=== PATIENT | male | born 1970 | race Caucasian/White ===

== ENCOUNTER 2019-12-13 06:09 | Emergency (ER) | payer OTHER ==
[~2019-12-13] VITALS: Ht 188 cm; Wt 103.4 kg
[2019-12-13] MEDS ORDERED: SLOW-MAG64 M1 PO (06:20)
[2019-12-13] MEDS ORDERED: POTASSIUM PO (06:21)
[2019-12-13] MEDS ORDERED: CLARITIN10 M3 PO (06:22)
[2019-12-13] MEDS ORDERED: VITAMIN D3-ALO1 EACH PO (06:22)
[2019-12-13 07:09] LABS: ABSOLUTE NEUTROPHILS 5.4 thou/uL (1.4-8.2); BASOPHILS 0.6 % (0.0-2.0); EOSINOPHILS 1.7 % (0.0-3.0); HEMATOCRIT 47.1 % (42.0-52.0); HEMOGLOBIN 16.1 gm/dL (14.0-18.0); MCH 31.2 pg (26.0-34.0); MCHC 34.3 g/dL (28.0-37.0); MONOCYTES 6.8 % (1.0-8.0); PLATELET COUNT 192 thou/uL (150-400); POLYS 75.9 % (36.0-66.0); RBC 5.17 mil/uL (4.50-6.00); RDW 13.8 % (10.5-14.5); WBC 7.1 thou/uL (4.0-11.0)
[2019-12-13 07:41] LABS: ANION GAP 10 mmol/L (7-16); BUN 7 mg/dL (7-18); CALCIUM 9.2 mg/dL (8.5-10.1); CHLORIDE 106 mmol/L (98-107); CO2 27 mmol/L (21-32); GLUCOSE 105 mg/dL (74-106); POTASSIUM 4.4 mmol/L (3.5-5.1); SODIUM 143 mmol/L (136-145)
[2019-12-13 07:42] LABS: AMP/METHAMP Negative (Negative); BARBITURATES Negative (Negative); BENZODIAZEPINES Negative (Negative); COCAINE Negative (Negative); METHADONE Negative (Negative); OPIATES Negative (Negative); PCP Negative (Negative)
[2019-12-13 07:55] LABS: SGOT 16 U/L (15-37); SGPT 21 U/L (30-65); TOTAL BILIRUBIN 0.4 mg/dL (0.2-1.0); TOTAL PROTEIN 7.2 g/dL (6.4-8.2); TROPONIN-I <0.06 ng/mL (<0.06)
--- NOTE | 2019-12-13 07:59 | EKG ---
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
[2019-12-13 08:49] VITALS: BP 122/78
[2019-12-13 09:37] LABS: PLATELET ESTIMATE NORMAL
== END 2019-12-13 08:49 | disposition home or self-care (01) ==
LOC: ER 06:09
PROVIDERS: Emergency Medicine
DX: R00.1 Bradycardia, unspecified (principal); F41.9 Anxiety disorder, unspecified; G89.29 Other chronic pain; M54.5 Low back pain; Z79.899 Other long term (current) drug therapy

== ENCOUNTER → 2019-12-27 | Outpatient (CLI) | payer OTHER ==
[~2019-12-27] MED LIST: CLARITIN10 M3 PO; POTASSIUM PO; SLOW-MAG64 M1 PO; VITAMIN D3-ALO1 EACH PO
== END ==
LOC: SJCVCIMAG 10:40
PROVIDERS: ATTEND Internal Medicine
DX: I08.8 Other rheumatic multiple valve diseases (principal); I10 Essential (primary) hypertension; I45.10 Unspecified right bundle-branch block

== ENCOUNTER 2020-06-11 06:01 | Emergency (ER) | payer OTHER ==
[~2020-06-11] VITALS: Ht 188 cm; Wt 99.8 kg
[2020-06-11] MEDS ORDERED: VITAMIN D310 MC1 PO (06:09)
[2020-06-11] MEDS ORDERED: METOPROLOL SUCC50 MG PO (06:11)
[2020-06-11 06:47] LABS: ANION GAP 3 mmol/L (7-16); BUN 12 mg/dL (7-18); CHLORIDE 101 mmol/L (98-107); CO2 28 mmol/L (21-32); CREATININE 1.1 mg/dL (0.7-1.3); GLUCOSE 103 mg/dL (74-106); POTASSIUM 4.1 mmol/L (3.5-5.1); SODIUM 132 mmol/L (136-145)
[2020-06-11 06:50] LABS: BASOPHILS 0.4 % (0.0-2.0); EOSINOPHILS 1.1 % (0.0-3.0); HEMATOCRIT 46.8 % (42.0-52.0); HEMOGLOBIN 15.7 gm/dL (14.0-18.0); LYMPHOCYTES 14.1 % (24.0-44.0); MCH 31.1 pg (26.0-34.0); MCHC 33.6 g/dL (28.0-37.0); MCV 92.6 fL (80.0-100.0); MONOCYTES 6.5 % (1.0-8.0); PLATELET COUNT 210 thou/uL (150-400); POLYS 77.9 % (36.0-66.0); RBC 5.05 mil/uL (4.50-6.00); RDW 14.3 % (10.5-14.5)
[2020-06-11 06:57] LABS: ALBUMIN 4.1 g/dL (3.4-5.0); SGOT 17 U/L (15-37); SGPT 28 U/L (16-63); TOTAL BILIRUBIN 0.4 mg/dL (0.2-1.0); TOTAL PROTEIN 6.8 g/dL (6.4-8.2); TROPONIN-I <0.06 ng/mL (<0.06)
[2020-06-11 07:08] LABS: URINE BILIRUBIN NEGATIVE (Negative); URINE BLOOD NEGATIVE (Negative); URINE CLARITY CLEAR; URINE COLOR YELLOW; URINE GLUCOSE-RANDOM* NEGATIVE (Negative); URINE KETONES NEGATIVE (Negative); URINE LEUKOCYTES-REFLEX NEGATIVE (Negative); URINE NITRITE-REFLEX NEGATIVE (Negative); URINE PROTEIN (DIPSTICK) NEGATIVE (Negative); URINE SPECIFIC GRAVITY <= 1.005 (1.005-1.035); URINE UROBILINOGEN 0.2 E.U./dl (0.2-1.0)
[2020-06-11 07:10] LABS: AMP/METHAMP Negative (Negative); BARBITURATES Negative (Negative); BENZODIAZEPINES Negative (Negative); COCAINE Negative (Negative); METHADONE Negative (Negative); OPIATES Negative (Negative); PCP Negative (Negative)
--- NOTE | 2020-06-11 07:20 | EKG ---
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: KEYANNA : 1970 Requested By: Yasmin Coelho Order Number: [id number] MD: Shayne Wakefield Measurements Intervals [place] Rate: 79 P: 82 [place]: 144 QRS: 81 QRSD: 110 T: 59 QT: 353 QTc: 405 Interpretive Statements Sinus rhythm RSR' in V1 or V2, right VCD or RVH Compared to ECG 12/13/2019 06:20:36 Right ventricular hypertrophy now present Electronically Signed On 06-11-2020 7:20:33 METHOD CONSULTANT by Shayne Wakefield [email or web address] <ELECTRONICALLY SIGNED> By: Shayne Wakefield MD, [facility] 06/11/20719 2 2 Shayne Wakefield MD, FACC /EPI
[2020-06-11 07:34] LABS: LIPASE 333 U/L (73-393)
[2020-06-11 10:02] VITALS: BP 139/81
== END 2020-06-11 10:02 | disposition home or self-care (01) ==
LOC: ER 06:01
PROVIDERS: Emergency Medicine
DX: R07.89 Other chest pain (principal); M54.5 Low back pain; G89.29 Other chronic pain; Z79.899 Other long term (current) drug therapy

== ENCOUNTER → 2021-05-27 | Outpatient (CLI) | payer OTHER ==
[~2021-05-27] MED LIST changes: +METOPROLOL SUCC50 MG PO; +VITAMIN D310 MC1 PO
[2021-05-27 14:07] LABS: URIC ACID* 5.5 mg/dL (3.5-7.2)
[2021-05-28 10:12] LABS: ANTI-DNA SCREEN <1 IU/mL (0-9); ANTI-RNP <0.2 AI (0.0-0.9)
== END ==
LOC: LAB 11:26
PROVIDERS: ATTEND Family Medicine
DX: M19.90 Unspecified osteoarthritis, unspecified site (principal)